=== PATIENT | female | born 1945 | race Caucasian/White ===

== ENCOUNTER 2017-02-03 06:08 | Day surgery (SDC) | payer MEDICARE, MEDICAID ==
[2017-02-01 12:46] LABS: HEMATOCRIT 42.4 % (36.0-48.0); MCH 30.8 pg (26.0-34.0); MCV 93.2 fL (80.0-100.0); RBC 4.55 10x6/uL (4.00-5.40); RDW 13.5 % (11.5-14.5); WBC 6.7 10x3/uL (4.8-10.8)
[2017-02-01 13:13] LABS: CALCIUM 10.1 mg/dL (8.5-10.1); CARBON DIOXIDE 28.3 mmol/L (21.0-32.0); CREATININE - SERUM 1.1 mg/dL (0.6-1.3); POTASSIUM - SERUM 4.3 mmol/L (3.5-5.1)
[~2017-02-03] VITALS: Ht 165.1 cm; Wt 90.7 kg
--- NOTE | ~2017-02-03 | HP ---
PATIENT: VERITO YORK MEDICAL RECORD: [id number] ACCOUNT: [id number] [facility] 43 ADMISSION DATE: 02/03/17 HISTORY AND PHYSICAL EXAMINATION CHIEF COMPLAINT: Tattooed polyp at 75 cm. HISTORY OF PRESENT ILLNESS: The patient has a polyp at 75 cm. It has previously been tattooed. The risks, possible complications and alternatives to colonoscopy with polypectomy utilizing the argon plasma portable track crew chief, which is a radiofrequency type of ablation of benign colonic process, was discussed with the patient. She has had no abdominal pain. No hematochezia. ALLERGIES: CODEINE, ACEON, METOPROLOL, ADHESIVES. HOME MEDICATIONS: Levothyroxine, aspirin, Protonix, verapamil, lisinopril. SOCIAL HISTORY: Nonsmoker. PAST MEDICAL AND SURGICAL HISTORY: Hypertension, history of atrial fibrillation. Dr. Herring is her mold filler and drainer, he last saw her in October 2016, gastroesophageal reflux, arthritis, hypothyroidism. 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 Also, open cholecystectomy, also a hysterectomy. REVIEW OF SYSTEMS: Negative for diabetes or renal disease. Negative for hepatitis. Negative for CVA. The review of systems is negative other than as is described above. PHYSICAL EXAMINATION: GENERAL: The patient does not appear acutely ill. She does not appear chronically ill. VITAL SIGNS: Reviewed. HEAD: External ears appear normal. EYES: Extraocular movements are intact. NECK: Trachea is midline. CHEST: No intercostal retractions. PULMONARY: Nonlabored, no stridor. ABDOMEN: Nontender. EXTREMITIES: No peripheral cyanosis. IMPRESSION: Tattooed polyp at 75 cm, complex. PLAN: Colonoscopy with polypectomies utilizing the argon plasma portable track crew chief. TRANSINT:[id number] Voice Confirmation ID: [id number] DOCUMENT ID: [id number] HISTORY AND PHYSICAL [id number] VERITO YORK JOHAN CORTES MD CC: MURRAY VIEYRA MD, KAREN BEDOLLA MD, ABHAY HERRING MD and [id number] MADINA MCNEAL DICTATION DATE: 02/03/17911 HELP DESK INTERN: 02/03/17 1002 [facility] [address] [place] [address]
--- NOTE | ~2017-02-03 | OP ---
PATIENT NAME: VERITO YORK MEDICAL RECORD: [id number] :43 LOC[facility] ADMISSION DATE: SURGEON: JOHAN CORTES MD DATE OF OPERATION: 02/03/2017 PREOPERATIVE DIAGNOSIS: Tattooed complex polyp at 75 cm. POSTOPERATIVE DIAGNOSIS: Tattooed complex polyp at 75 cm. PROCEDURES: 1. Total colonoscopy to cecum. 2. Polypectomies utilizing the argon plasma food and nutrition teacher. 3. Retattooing of the polyp. SURGEON: Johan Cortes MD PLUMBER PIPE FITTING: None. BLOOD LOSS: Minimal. ANESTHESIA: General. COMPLICATIONS: None. The risks, possible complications, and alternatives to the procedure were explained to the patient. She elects to proceed. OPERATIVE COURSE: The patient was conveyed to the operating room electively on 02/02/2017. General anesthesia was induced by the anesthesia staff. The patient was placed in the Stephenson position. A digital rectal examination was performed. A colonoscope was inserted through the anus. It was easily advanced to the cecum. The prep was adequate. I slowly withdrew the endoscope. I irrigated and aspirated extensively. I dragged the folds. The only polypoid tissue that I could identify was at the tattoo. The tattoo was fairly light and for this reason, I decided to retattoo at the end of the procedure. Multiple cold endoscopic biopsies were performed. I then ablated the base of the polyp utilizing the argon plasma food and nutrition teacher with the right colon setting in the forced mode. I then advanced the sclerotherapy needle. Submucosal injection of 3 cc methylene blue was performed on the near side of the polyp, which was on a fold. I then withdrew the sclerotherapy needle. I then continued to withdraw the endoscope. It was withdrawn under direct vision. The patient was then extubated and conveyed to post-anesthesia care unit where she was in stable condition. She will be dismissed home on Flagyl as she will be at risk for a post-polypectomy syndrome. TRANSINT:[id number] Voice Confirmation ID: [id number] DOCUMENT ID: [id number] OPERATIVE REPORT [id number] VERITO YORK JOHAN CORTES MD CC: MURRAY VIEYRA MD, KAREN BEDOLLA MD, ABHAY ELLIOTT MD and [id number] MADINA MCNEAL DICTATION DATE: 02/03/17925 ORDER ADMINISTRATOR: 02/03/17 1233 DEP SDC 02/03/17 [facility] [address] [place] [address]
[~2017-02-03 06:08] MED LIST: BIOTIN5 MG PO; CALAN SR120 MG PO; CALAN120 MG PO; CALCIUM 600+D T1 TA1 PO; CENTRUM COMPLE1 EACH PO; CIPRO500 MG PO; CLOBETASOL PROP15 GM TP; FISH OIL 1,0001 CA1 PO; FLAGYL500 MG PO; FOLIC ACID0.8 MG PO; HYDROCODON-ACE1 EAC7 PO; MULTIPLE VITAMI1 TA1 PO; PROTONIX40 MG PO; SYNTHROID75 MCG PO; ZESTORETIC 10/11 TAB PO; ZOFRAN ODT4 MG/UDTAB PO
[2017-02-03 06:43] VITALS: BP 125/71; Ht 165.1 cm; Wt 90.7 kg
--- NOTE | 2017-02-03 07:56 | NUR ---
NO COUNTS, NO PREP, NO SCD R/T PROCEDURE
--- NOTE | 2017-02-03 08:48 | NUR ---
TATTOO DONE AT 71CM
--- NOTE | 2017-02-03 17:05 | NUR ---
1015--PT VOIDS, IV OUT. ANDRE HAWKINS 1020--DISCHARGE INSTRUCTIONS GIVEN, PT VERBALIZES UNDERSTANDING. PT OFF UNIT VIA WC. ANDRE HAWKINS
== END 2017-02-03 10:20 | disposition home or self-care (01) ==
LOC: D.OPS 06:08 → D.PAN 08:00 → D.OPS 08:00
PROVIDERS: Anesthesiology
DX: K63.5 Polyp of colon (principal); K21.9 Gastro-esophageal reflux disease without esophagitis; I10 Essential (primary) hypertension; I48.91 Unspecified atrial fibrillation; M19.90 Unspecified osteoarthritis, unspecified site; E03.9 Hypothyroidism, unspecified; Z79.82 Long term (current) use of aspirin; Z79.899 Other long term (current) drug therapy; Z88.5 Allergy status to narcotic agent; Z88.8 Allergy status to other drugs, medicaments and biological substances

== ENCOUNTER 2017-02-16 22:08 | Inpatient (IN) | payer MEDICARE, MEDICAID ==
[~2017-02-16] VITALS: Ht 165.1 cm; Wt 90.5 kg
[2017-02-16 23:24] LABS: BASOPHILS 0.4 % (0-2); EOSINOPHILS 3.3 % (0-7); HEMOGLOBIN 12.7 g/dL (12-16); IMMATURE GRANULOCYTES 0.1 % (0-5); LYMPHOCYTES 26.8 % (15-50); MCH 30.3 pg (26.0-34.0); MCHC 32.6 g/dL (31.0-37.0); MCV 93.1 fL (80.0-100.0); MEAN PLATELET VOLUME 10.1 fL (7.4-10.4); MONOCYTES 12.8 % (2-11); NEUTROPHILS 56.6 % (40-80); RBC 4.19 10x6/uL (4.00-5.40); RDW 14.2 % (11.5-14.5); WBC 7.3 10x3/uL (4.8-10.8)
[2017-02-16 23:28] LABS: PLATELET COUNT 238 10x3/uL (130-400)
[2017-02-16 23:35] LABS: ALBUMIN 3.5 g/dL (3.4-5.0); BILIRUBIN - TOTAL 0.28 mg/dL (0.2-1.3); CALCIUM 9.5 mg/dL (8.5-10.1); CARBON DIOXIDE 31.9 mmol/L (21.0-32.0); CREATININE - SERUM 1.1 mg/dL (0.6-1.3); POTASSIUM - SERUM 3.9 mmol/L (3.5-5.1); PROTEIN - SERUM 7.1 g/dL (6.4-8.2)
[2017-02-17] VITALS (15 sets, daily range): BP systolic 132–180; BP diastolic 68–95; Ht 165.1 cm; Wt 90.5 kg
[2017-02-17 00:13] LABS: INR 0.93 (0.85-1.17); MAGNESIUM - SERUM 1.7 mg/dL (1.8-2.4); PROTIME 12.3 SECONDS (11.6-15.0)
[2017-02-17 04:06] LABS: BASOPHILS 0.3 % (0-2); EOSINOPHILS 3.6 % (0-7); HEMATOCRIT 35.7 % (36.0-48.0); HEMOGLOBIN 11.9 g/dL (12-16); IMMATURE GRANULOCYTES 0.2 % (0-5); LYMPHOCYTES 28.4 % (15-50); MCH 30.8 pg (26.0-34.0); MCHC 33.3 g/dL (31.0-37.0); MCV 92.5 fL (80.0-100.0); MEAN PLATELET VOLUME 10.2 fL (7.4-10.4); MONOCYTES 11.1 % (2-11); NEUTROPHILS 56.4 % (40-80); PLATELET COUNT 232 10x3/uL (130-400); RBC 3.86 10x6/uL (4.00-5.40); WBC 6.1 10x3/uL (4.8-10.8)
[2017-02-17 12:04] LABS: HEMATOCRIT 35.7 % (36.0-48.0); HEMOGLOBIN 11.8 g/dL (12-16)
--- NOTE | 2017-02-17 15:40 | NUR ---
PT TRANSPORTED BY W/C TO ROOM 2204.
[2017-02-17 19:05] LABS: HEMATOCRIT 35.8 % (36.0-48.0)
--- NOTE | 2017-02-17 19:41 | NUR ---
AWAKE,ALERT.ORIENTED. TV INFUSING TO LEFT ARM WIHTOUT REDNESS OR EDEMA NOTED. NO COMPLIANTS OF NAUSEA. CL IN REACH.
[2017-02-18] VITALS: BP 130/60
--- NOTE | 2017-02-18 00:50 | NUR ---
AROUSES EASILY. NO DISTRESS NOTED. CL IN REACH.
[2017-02-18 04:00] VITALS: BP 129/64
--- NOTE | 2017-02-18 04:33 | NUR ---
PT LYING IN BED AWAKE. DENIES PAIN. DENIES NEEDS AT THIS TIME. CONTINUE STATISTICAL PROGRAMMER ANALYST'S PLAN OF CARE.
[2017-02-18 05:16] LABS: HEMOGLOBIN 11.8 g/dL (12-16)
--- NOTE | 2017-02-18 06:01 | NUR ---
NO CHANGE IN ASSESSMENT. CL IN [facility]
--- NOTE | 2017-02-18 07:22 | NUR ---
MATT LOU AT BEDSIDE. RESPIRATIONS EVEN AND NON LABORED. CALL LIGHT IN REACH. BED IN LOWEST POSITION WITH WHEELS LOCKED AND SIDE RAILS X2. WILL CONTINUE WITH PLAN OF CARE.
[2017-02-18 07:38] VITALS: BP 144/77
--- NOTE | 2017-02-18 09:20 | NUR ---
PT IS RESTING IN BED WITH EYES OPEN. ALERT AND ORIENTED X 3. PT DENIES ANY ABD PAIN OR BLEEDING. SHE DID VOICE COMPLAINT OF RIGHT SHOULDER AND HIP PAIN LEVEL OF 4. STATES: "THEY ALWAYS HURT WHEN I LAY IN BED TO MUCH." IV INFUSING TO LEFT AC WITHOUT DIFFICULTY. NO REDNESS OR EDEMA NOTED AT THE INSERTION SITE. SR'S ARE UP X2 IN BED. CALL LIGHT AND BEDSIDE TABLE ARE WITHIN EASY REACH.
--- NOTE | 2017-02-18 11:00 | NUR ---
PT IS RESTING IN BED WITH EYES OPEN. NO ACUTE DISTRESS NOTED.
[2017-02-18 12:22] VITALS: BP 131/65
--- NOTE | 2017-02-18 12:30 | NUR ---
PT RESTING IN BED FEEDING SELF LUNCH. NO NEEDS VOICED.
--- NOTE | 2017-02-18 14:16 | NUR ---
Patient Name: VERITO YORK Admission Status: ER Accout number: [id number] Admission Date: 02-17-2017 : 1945 Admission Diagnosis: Attending: MINA Current LOS: 1 Anticipated DC Date: Planned Disposition: Primary Insurance: [facility] Discharge Planning Comments: CM MET WITH PT WITH SPOUSE ( STERLING) IN ROOM. PT STATES THAT SHE WILL BE RETURNING HOME WITH HER TO DRIVE HER. SHE STATED THAT SHE IS RETURNING TO A SAFE ENVIRONMENT WITH 5 STEPS TO ENTER WITHOUT ANY DIFFICULTIES AMBULTATING. PT DENIES ANY NEED FOR HH. CM WILL CONTINUE TO FOLLOW AND ASSIST NEEDED WITH DISCHARGE PLANNING/NEEDS PCP: JUDITH CARMEN PHARMACY: [facility] [place] STERLING YORK (SPOUSE) Tin Flipper: Jasmin Vogel * Is the patient Alert and Oriented? Yes 0 * How many steps to enter\exit or inside your home? 5 0 * PCP JUDITH CARMEN 0 * Pharmacy [facility] [place] 0 * Preadmission Environment Home with Family 0 * ADLs Independent 0 * Equipment None 0 * List name and contact numbers for known caregivers / representatives who currently or will assist patient after discharge: STERLING YORK (SPOUSE) [phone] * Community resources currently utilized None 0 * Additional services required to return to the preadmission environment? Yes 0 * Can the patient safely return to the preadmission environment? Yes 0 * Has this patient been hospitalized within the prior 30 days at any hospital? No 0
--- NOTE | 2017-02-18 14:32 | NUR ---
PT RESTING IN BED WITH EYES CLOSED. NO ACUTE DISTRESS NOTED.
[2017-02-18 14:46] VITALS: BP 118/69
--- NOTE | 2017-02-18 16:49 | NUR ---
CM NOTE: PT DISCHARGED HOME IN STABLE CONDITION WITH TO DRIVE HOME. PT DENIES ANY CASE MANAGEMENT NEEDS
--- NOTE | 2017-02-18 18:05 | NUR ---
RESTING IN BED EATING SUPPER. NO NEEDS VOICED.
== END 2017-02-18 18:25 | disposition home or self-care (01) | DRG 379 ==
LOC: D.ER 22:08 → D.MS 02-17 01:33 → D.ICU 02-17 01:33 → D.MS 02-17 15:41
PROVIDERS: Emergency Medicine; ADMIT Surgery
DX: K92.2 Gastrointestinal hemorrhage, unspecified (principal); I10 Essential (primary) hypertension; M32.9 Systemic lupus erythematosus, unspecified; E03.9 Hypothyroidism, unspecified

== ENCOUNTER → 2019-03-02 08:35 | Outpatient (CLI) | payer MEDICARE, MEDICAID | END | disposition home or self-care (01) | LOC: D.RAD 08:35 | DX: R19.4 Change in bowel habit (principal); K57.92 Diverticulitis of intestine, part unspecified, without perforation or abscess without bleeding; Z86.010 Personal history of colon polyps ==